=== PATIENT | male | born 1975 | race Caucasian/White ===

== ENCOUNTER 2022-01-12 22:03 | Emergency (ER) | payer SELFPAY ==
[2022-01-12 22:13] VITALS: BP 135/89; PULSE 89; RESP 18; TEMP 36.6; O2SAT 98; BMI 37.3
--- NOTE | 2022-01-12 22:27 | ED_ITS ---
HPI - Back Pain/Injury General Time Seen by Provider: 22:27 Date Seen: 01/12/22 Chief Complaint: Back Injury/Pain Stated Complaint: Lower Back Pain Time Seen by Provider: 01/12/22 22:17 Source: patient and RN notes reviewed Mode of arrival: ambulatory Limitations: no limitations History of Present Illness HPI Narrative: Alvarado is a very pleasant 46-year-old gentleman who states he had a history of back pain with leg pain 25 years ago and is also deals with chronic kidney stone who comes to the emergency for evaluation regarding back pain. Patient state yesterday he was lifting water from back of his vehicle and was in a twisting motion when he suddenly felt his back ?seize up?. He noted increasing pain yesterday and pain is now 10/10 today with radiation down the back of his right leg not past the knee. He states it is very hard to get up and stand up but he denies numbness or tingling or loss of bowel or bladder control. He has not had fever or chills. He notes that he is the [place] for a large [place]. Again, pain like this has not happened in about 20+ years. Patient has been using Tylenol at home but it has not helped very much. He uses Aleve on a daily basis. Movement greatly increases this gentleman's pain. He is preferring to sit. He did have a neighbor bring him here tonight. He is describing that he does not like hospitals. He does not have a regular physician. He lives in the [place] area. Related Data Home Medications Medication Instructions Recorded Confirmed No Known Home Medications 01/12/22 01/12/22 Allergies Allergy/AdvReac Type Severity Reaction Status Date / Time No Known Drug Allergies Allergy Verified 01/12/22 22:15 Review of Systems Status of ROS: Reports: 10 or more systems reviewed and unremarkable except as noted in History and below Narrative: Patient denies a history of addictions to other alcohol. Patient denies recent narcotic prescriptions. Check of the [employer] confirms this. Const: Denies: fever, chills or change in weight Eyes: Denies: change in vision ENMT: Denies: throat pain or neck pain Cardio: Denies: chest pain or shortness of breath with exertion Resp: Denies: shortness of breath or cough GI: Denies: abdominal pain or nausea : Denies: painful urination or urinary frequency Musculo: Reports: back pain; Denies: neck pain PFSH [facility] Medical History Kidney stone Surgical History No significant past surgical history Social History Smoking Status: Current every day smoker Do you use any of these nicotine containing products: None Second hand tobacco smoke exposure: Yes How often do you have a drink containing alcohol: never How often do you have six or more drinks on one occasion: Never AUDIT-C Alcohol total score: 0 Non-prescribed substance use: denies use Exam Narrative: Exam Narrative: Past medical history: Chronic kidney stones. Back pain with right leg radiation 20+ years ago. Social history: Positive for 1 pack a day. No alcohol or drug use. Const: Vital Signs, click to edit/add: Vital Signs - 24 hr 01/12/22 22:13 01/12/22 22:32 01/12/22 22:51 Temperature 97.8 F 97.8 F 97.8 F Pulse Rate [Right Pulse Oximeter] 89 Respiratory Rate 18 Blood Pressure [Ri ght Upper Arm] 135/89 Pulse Oximetry 98 Oxygen Delivery Me thod Room Air 01/12/22 22:53 01/12/22 22:55 Temperature 97.8 F 97.8 F Pulse Rate [Right Pulse Oximeter] 79 79 Respiratory Rate 18 18 Blood Pressure [Ri ght Upper Arm] 127/78 127/78 Pulse Oximetry 98 Oxygen Delivery Me thod Room Air Documenting provider has reviewed patient's vital signs: yes Common normals: oriented x3, no limitations and alert General appearance: cooperative and in distress moderate HENMT: Common normals: head/scalp atraumatic Head and scalp: atraumatic Eye: Common normals: PERRL General eye: normal appearance of both eyes Pupil: PERRL Resp: Common normals: normal respiratory effort and clear to auscultation bilaterally Effort & inspection: able to speak in complete sentences Auscultation: clear to auscultation bilaterally Cardio: Common normals: regular rate and regular rhythm Rate: regular rate Rhythm: regular rhythm GI: Common normals: soft to palpation Palpation: soft : Common normals: no CVA tenderness Bladder/kidney exam: no CVA tenderness Back & Pelvis: Common normals: no CVA tenderness Thoracic spine/upper back: normal to inspection Lumbar spine/lower back: normal to inspection and pain with ROM; no lumbar spinal tenderness Pelvis: sciatic notch tenderness (On the right) Sacroiliac joints: SI joints normal Extremity: Common normals: normal to inspection and full ROM Neuro: Common normals: oriented x3 Sensorium/orientation: alert Other: Patient noted to have symmetrical strength with hip flexion knee flexion extension as well as ankle flexion extension. Patient is able to stand on heels . Standing on toes increased his pain a but he had full strength. DTRs are 2+ at the knees. Distally sensation is intact. Psych: Appearance: grossly normal Course Course Hospital Course: Patient noted to have the onset of pain yesterday while lifting a heavy item in a twisting motion. No red flag symptoms tonight. No significant trauma to warrant an x-ray. At this time will order Toradol 30 mg IM and morphine 8 mg IM for pain control. Vital Signs Vital signs: Initial Vital Signs Temperature 97.8 F 01/12/22 22:13 Temperature Source Temporal Artery Scan 01/12/22 22:13 Pulse Rate 89 01/12/22 22:13 Respiratory Rate 18 01/12/22 22:13 Blood Pressure 135/89 01/12/22 22:13 Blood Pressure Mean 104 01/12/22 22:13 Blood Pressure Position Sitting 01/12/22 22:13 Pulse Oximetry 98 01/12/22 22:13 Oxygen Delivery Method 01/12/22 22:13 Vital Signs Temperature 97.8 F 01/12/22 22:13 Pulse Rate 89 01/12/22 22:13 Respiratory Rate 18 01/12/22 22:13 Blood Pressure 135/89 01/12/22 22:13 Pulse Oximetry 98 01/12/22 22:13 Oxygen Delivery Method 01/12/22 22:13 Temperature 97.8 F 01/12/22 22:55 Pulse Rate 79 01/12/22 22:55 Respiratory Rate 18 01/12/22 22:55 Blood Pressure 127/78 01/12/22 22:55 Pulse Oximetry 98 01/12/22 22:53 Oxygen Delivery Method 01/12/22 22:53 MDM - Back Pain/Injury MDM Narrative Medical decision making narrative: 1. Low back pain with right-sided radiculitis. Patient will receive Toradol and morphine IM. Start anti-inflammatory prednisone tonight 40 mg daily for 5 days. For pain may continue on Aleve 2 tablets b.i.d.. A small amount of Vicodin 5/325 1-2 tablets p.o. Q 6-8 hours p.r.n. will be made available to the patient. Twelve. Via Actimagine. Flexeril 10 mg p.o. t.i.d. p.r.n. muscle spasm. Number 30 via Actimagine. Follow-up with primary MD or clinic this week for recheck. Likely physical therapy would be of help. Loss of bowel or bladder control, worsening pain, numbness or tingling of the lower extremities return to the emergency room for further evaluation. 2. Disposition-patient is discharged home. Return for worsening symptoms. Patient noted that he was feeling much improved after injections. Able to ambulate without assistance. Medical Records Attestation: I reviewed the patient's medical records. Medical records narrative: [employer] negative for narcotic prescriptions Discharge Plan Discharge Clinical Impression: Strain of lumbar region, Radiculitis Patient Disposition: Home, Self-Care Condition: Improved Additional Instructions: Recommend light activity and icing of the low back at this time. For pain you may use Aleve 2 tablets b.i.d. please take with food. For pain not relieved by Aleve would recommend small amounts and use sparingly Vicodin also known as [place] or hydrocodone. You may take 1-2 tabs every 6-8 hours as needed. Note side effect is constipation so suggest use of stool softener . Would also recommend starting prednisone as an anti-inflammatory. This may be used for 5 days. Finally Flexeril 10 mg as needed for muscle spasm. Please note that both Flexeril and Vicodin are very sedating. You should not use alcohol nor drive nor operate dangerous machinery if using this medication. Return to the emergency room/seek medical attention for loss of bowel or bladder control, worsening pain, onset of fever or other symptoms. Prescriptions: No Action No Known Home Medications Stand Alone Forms: [facility] Info Instructions
[2022-01-12 22:32] VITALS: TEMP 36.6
[2022-01-12] MEDS: KETOROLAC 30 MG/ML inj IM (22:32)
[2022-01-12] MEDS: MORPHINE 10 MG/ML inj 8 MG IM (22:36)
[2022-01-12 22:51] VITALS: TEMP 36.6
[2022-01-12 22:53] VITALS: BP 127/78; PULSE 79; RESP 18; TEMP 36.6; O2SAT 98
[2022-01-12 22:55] VITALS: BP 127/78; PULSE 79; RESP 18; TEMP 36.6
== END 2022-01-12 22:56 | disposition home or self-care (01) ==
PROVIDERS: Emergency Provider Family Medicine
DX: S39.012A Strain of muscle, fascia and tendon of lower back, initial encounter (principal); X50.0XXA Overexertion from strenuous movement or load, initial encounter; M54.10 Radiculopathy, site unspecified
CPT/HCPCS: 96372; 99283; 99284; J1885; J2270